=== PATIENT | female | born 1965 | race Asian ===

== ENCOUNTER 2019-03-29 11:40 | Day surgery (SDC) | payer BC ==
[~2019-03-29] VITALS: Ht 152.4 cm; Wt 55.4 kg
[2019-03-29 12:57] VITALS: Ht 152.4 cm; Wt 55.4 kg
[2019-03-29] MEDS ORDERED: VITAMINS (13:09)
[2019-03-29 13:30] VITALS: BP 134/84; PULSE 63; RESP 12
[2019-03-29] MEDS ORDERED: FENTAnyl 50 MCG/ML VIAL ONE (14:14)
[2019-03-29] MEDS ORDERED: MIDAZOLAM 1 MG/ML 2 ML INJ ONE (14:14)
[2019-03-29 14:31] VITALS: BP 110/67; PULSE 63; RESP 14
== END 2019-03-29 15:57 | disposition home or self-care (01) ==
LOC: GIL 11:40
PROVIDERS: ATTEND Internal Medicine
DX: Z12.11 Encounter for screening for malignant neoplasm of colon (principal); K57.30 Diverticulosis of large intestine without perforation or abscess without bleeding
CPT/HCPCS: 45378; J2250; J3010; Z7610